=== PATIENT | male | born 1940 | race Caucasian/White ===

== ENCOUNTER 2017-07-21 14:29 | Emergency (ER) | payer OTHER ==
[2017-07-21 15:26] LABS: RAPID GROUP A STREP NEGATIVE (NEGATIVE)
[2017-07-21 15:32] LABS: INR 0.93 (0.85-1.15); PARTIAL THROMBOPLASTIN TIME 31.4 SEC (26.3-35.5); PROTHROMBIN TIME 9.8 SEC (9.6-11.6)
[2017-07-21 15:47] LABS: CREATINE KINASE MB 1.3 ng/mL (0.5-3.6)
[2017-07-21] MEDS ORDERED: GUAIFENESIN-DM 200/20 MG 10 ML ONE (16:03)
[2017-07-21] MEDS ORDERED: AZITHROMYCIN 250 MG TABLET PO ONE (16:05)
[2017-07-21] MEDS ORDERED: IPRATROPIUM/ALBUTEROL SULFATE 3 ML SOLUTION IH ONE (16:07)
[2017-07-21 16:28] LABS: BASOPHILS % (AUTO) 0.7 % (0.0-5.0); EOSINOPHILS % (AUTO) 4.2 % (0.0-8.0); HEMATOCRIT 43.5 % (42-54); LYMPHOCYTES % (AUTO) 21.3 % (21.0-51.0); MEAN CORPUSCULAR HEMOGLOBIN 32.4 pg (27.0-33.0); MEAN CORPUSCULAR HGB CONC 34.1 g/dL (32.0-36.0); MEAN CORPUSCULAR VOLUME 95.2 fL (79-99); MONOCYTES % (AUTO) 9.9 % (3.0-13.0); NEUTROPHILS % (AUTO) 63.9 % (40.0-77.0); PLATELET COUNT (AUTO) 354 K/uL (130-400); RED BLOOD CELL COUNT(AUTO) 4.57 MIL/uL (4.50-6.20); RED CELL DISTRIBUTION WIDTH 14.7 % (11.0-15.5); WHITE BLOOD COUNT (AUTO) 7.5 K/uL (4.8-10.8)
== END 2017-07-21 16:56 | disposition home or self-care (01) ==
LOC: EDH 14:29
DX: J18.9 Pneumonia, unspecified organism (principal); I10 Essential (primary) hypertension; Z98.890 Other specified postprocedural states
CPT/HCPCS: 36415; 71046; 82550; 82553; 84484; 85025; 85610; 85730; 87804; 87880; 93005; 94640